=== PATIENT | male | born 1980 | race Caucasian/White ===

== ENCOUNTER 2023-09-20 17:43 | Inpatient (IN) | payer OTHER ==
[2023-09-20 18:36] VITALS: BMI 38.4
[2023-09-20] MEDS ORDERED: NALOXONE HCL 0.4 MG/ML VIAL IM PRN (19:36)
[2023-09-20] MEDS ORDERED: BENZOCAINE/MENTHOL (CHLORASEPTIC ) LOZENGE MM PRN (19:36)
[2023-09-20] MEDS ORDERED: ONDANSETRON *ODT* 4 MG TABLET SL PRN (19:36)
[2023-09-20] MEDS ORDERED: LOPERAMIDE HCL 2 MG CAPSULE PO PRN (19:36)
[2023-09-20] MEDS ORDERED: ACETAMINOPHEN 325 MG TABLET (FP) PO PRN (19:36)
[2023-09-20] MEDS ORDERED: NALOXONE HCL (KLOXXADO) 8 MG SPRAY NS PRN (19:36)
[2023-09-20] MEDS ORDERED: MAG HYDROX/AL HYDROX/SIMETH 30 ML UNIT-DOSE CUP PO PRN (19:36)
[2023-09-20] MEDS ORDERED: POLYETHYLENE GLYCOL (HEALTHYLAX) 3350 17 GM PACKET PO PRN (19:36)
[2023-09-20] MEDS ORDERED: DICYCLOMINE HCL 10 MG CAPSULE PO PRN (19:36)
[2023-09-20] MEDS ORDERED: guaiFENesin 600 MG TABLET.ER (FP) PO PRN (19:36)
[2023-09-20] MEDS ORDERED: BENZONATATE 200 MG CAPSULE PO PRN (19:36)
[2023-09-20] MEDS ORDERED: BISMUTH SUBSALICYLATE 524 MG/30 ML PO PRN (19:36)
[2023-09-20] MEDS ORDERED: MAGNESIUM HYDROX 2400MG/30ML ORAL SUSPENSION 30 ML CUP PO PRN (19:36)
[2023-09-20] MEDS ORDERED: NICOTINE POLACRILEX 2 MG GUM BUC PRN (19:36)
[2023-09-20] MEDS ORDERED: IBUPROFEN 400 MG TABLET (FP) PO PRN (19:36)
[2023-09-20] MEDS: THIAMINE HCL 100 MG TABLET (FP) PO SCH (22:17)
[2023-09-20] MEDS: MELATONIN 5 MG TABLETS PO SCH (22:17)
[2023-09-20] MEDS: diazePAM 5 MG TABLET PO SCH (22:17)
[2023-09-20] MEDS: IBUPROFEN 600 MG TABLET (FP) PO PRN (22:18)
[2023-09-21] MEDS: PRENATAL VITAMINS W/ FOLIC ACID TABLET (FP) PO SCH (10:14)
[2023-09-21] MEDS: NICOTINE 21 MG/24 HOURS TOPICAL PATCH TD SCH (10:14)
[2023-09-21] MEDS ORDERED: ALBUTEROL SO4 HFA INHALER IH PRN (10:42)
[2023-09-21 10:46] LABS: CHLORIDE 108 mmol/L (98-107); POTASSIUM 4.2 mmol/L (3.5-5.1); SODIUM 142 mmol/L (136-145)
[2023-09-21 10:47] LABS: HEMATOCRIT 43.5 % (35.4-49); HEMOGLOBIN 15.2 GM/dL (11.7-16.9); MCH 30.6 pg (25.7-33.7); MCHC 34.9 g/dl (32.0-35.9); MEAN CELL VOLUME 87.6 fl (80-96); MEAN PLT VOLUME 8.7 fl (7.5-11.1); PLATELET COUNT 218 10^3/uL (134-434); RBC 4.97 M/mm3 (4.00-5.60); RDW 13.2 % (11.9-15.9); WHITE BLOOD COUNT 6.6 K/mm3 (4.0-10.0)
[2023-09-21 10:54] LABS: ALBUMIN 3.5 g/dl (3.4-5.0); ANION GAP 6 mmol/L (4-13); BLOOD UREA NITROGEN 18.2 mg/dL (7-18); CALCIUM 8.5 mg/dL (8.5-10.1); CO2 28 mmol/L (21-32); GLUCOSE,RANDOM 90 mg/dL (74-106)
[2023-09-21 10:55] LABS: SGOT/AST 38 U/L (15-37); SGPT/ALT 71 U/L (13-61)
[2023-09-21 10:56] LABS: BILIRUBIN,TOTAL 0.4 mg/dL (0.2-1)
[2023-09-21 10:57] LABS: TOT PROT 6.3 g/dl (6.4-8.2)
[2023-09-21 10:58] LABS: ALK PHOS 81 U/L (45-117); CREATININE 0.9 mg/dL (0.55-1.3)
[2023-09-21] MEDS: methaDONE 40 MG, methaDONE 20 MG PO SCH (11:05)
[2023-09-21] MEDS: amLODIPine BESYLATE 10 MG TABLET (FP) PO SCH (11:05)
[2023-09-21] MEDS: methaDONE HCL 10 MG TABLET PO SCH (11:08)
[2023-09-21] MEDS: diazePAM 5 MG TABLET PO PRN (20:56)
[2023-09-21] MEDS: METHOCARBAMOL 500 MG TABLET PO PRN (20:59)
[2023-09-21] MEDS: hydrOXYzine PAMOATE 25 MG CAPSULE (FP) PO PRN (22:12)
[2023-09-22] MEDS: cloNIDine HCL 0.1 MG TABLET PO PRN (00:15)
[2023-09-22] MEDS: diazePAM 5 MG TABLET PO SCH (05:40)
[2023-09-23] MEDS: diazePAM 5 MG TABLET PO SCH (05:32)
[2023-09-24] MEDS: diazePAM 5 MG TABLET PO ONE (05:28)
[2023-09-24 09:32] VITALS: TEMP 97.7
[2023-09-24] MEDS: LOSARTAN 50MG/HCTZ 12.5MG 1 TAB PO SCH (11:19)
[2023-09-24 12:29] VITALS: BP 156/100; PULSE 106; RESP 14
== END 2023-09-24 13:22 | disposition home or self-care (01) | DRG 773 ==
LOC: YASAS 17:43 → Y3N 20:18
PROVIDERS: ADMIT Allergy & Immunology; ATTEND Surgery
PROC: HZ2ZZZZ Detoxification Services for Substance Abuse Treatment (ICD-10-PCS; principal; 2023-09-20)
DX: F10.230 Alcohol dependence with withdrawal, uncomplicated (principal); F11.20 Opioid dependence, uncomplicated; F13.20 Sedative, hypnotic or anxiolytic dependence, uncomplicated; F17.210 Nicotine dependence, cigarettes, uncomplicated; F31.9 Bipolar disorder, unspecified; F20.9 Schizophrenia, unspecified; I10 Essential (primary) hypertension; J45.909 Unspecified asthma, uncomplicated; K21.9 Gastro-esophageal reflux disease without esophagitis; M54.50 Low back pain, unspecified; G89.29 Other chronic pain
CPT/HCPCS: 36415; 80053; 80305; 80307; 85027; 86780; 87635; 87811; 93005; 93010